=== PATIENT | male | born 1980 | race African-American/Black ===

== ENCOUNTER 2019-06-08 02:55 | Inpatient (IN) | payer OTHER ==
[~2019-06-08] VITALS: Ht 182.9 cm; Wt 126.0 kg
[2019-06-08 03:49] LABS: Hemoglobin 14.4 g/dL (13.5-17.5)
[2019-06-08 03:51] LABS: Hematocrit 45.5 % (41.0-53.0); Mean Corpuscular Hemoglobin 20.2 pg (28.0-32.0); Mean Corpuscular Hgb Conc. 31.7 g/dL (32.0-36.0); Mean Corpuscular Volume 63.9 fL (80.0-100.0); Platelet Count (auto) 319 10^3/uL (140-450); Red Blood Cells 7.12 10^6/uL (4.5-5.90); Red Cell Distribution Width 17.3 % (11.8-14.3); White Blood Cell 7.8 10^3/uL (4.4-10.8)
[2019-06-08 04:09] LABS: Basophils % (manual) 0 (0.0-2.0); Blast Cells 0; Eosinophils % (manual) 0 (0-7); Metamyelocytes % 0; Myelocytes % 0; Promyelocytes % 0; Reactive Lymphocytes 0
[2019-06-08 04:10] LABS: BUN/Creatinine Ratio 7.2; Calcium 9.3 mg/dL (8.5-10.1); Potassium 3.9 mmol/L (3.5-5.1)
[2019-06-08 04:13] LABS: Bilirubin, Total 0.6 mg/dL (0.2-1.0); Total Protein 8.6 g/dL (6.4-8.2)
[2019-06-08] MEDS ORDERED: SODIUM CHLORIDE 0.9% 1,000 ML IV ONE (04:28)
[2019-06-08] MEDS ORDERED: PROMETHAZINE HCL 25 MG/ML 1ML IV ONE (04:45)
[2019-06-08] MEDS ORDERED: TAMSULOSIN HYDROCHLORIDE 0.4 MG CAP PO ONE (04:45)
[2019-06-08] MEDS ORDERED: KETOROLAC TROMETH 30 MG/ML 1ML VIAL IV ONE (04:45)
[2019-06-08 04:51] LABS: Band Neutrophils % (manual) 2; Lymphocytes % (manual) 7 (10.0-50.0); Monocytes % (manual) 3 (0-12)
[2019-06-08] MEDS ORDERED: TEMAZEPAM 15 MG CAP PO PRN (05:15)
[2019-06-08] MEDS ORDERED: ACETAMINOPHEN 325 MG TAB PO PRN (05:15)
[2019-06-08] MEDS ORDERED: MORPHINE SULFATE 4 MG/ML SYR/VIAL IV PRN (05:15)
[2019-06-08] MEDS ORDERED: ONDANSETRON HCL 4 MG/2 ML VIAL IV PRN (05:15)
--- NOTE | 2019-06-08 06:30 | NUR ---
MS admit from ER ONOFRE MEZA admitted to tele/MS after SBAR received. Patient oriented to TE COKER, RN primary RN, unit, room, bed, and unit policies regarding patient care and visiting hours. No s/s of SOB or distress noted. Patient denies pain and nausea at this time. at bedside. Patient weighed by bedscale and encouraged to call if they need something. Bed locked and left in lowest positon. Call light left within reach. All questions and concerns addressed, patient verbalized understanding. Note:
[2019-06-08 06:49] VITALS: BP 134/89
--- NOTE | 2019-06-08 08:00 | NUR ---
Opening Shift Note Assumed care of patient, awake and alert. Denies needing anything at this time. No S/S of distress/SOB or pain. Instructed on POC and to call for assist PRN, will continue to monitor for changes Q1hr and PRN.
[2019-06-08 09:00] VITALS: BP 150/90
[2019-06-08] MEDS: FAMOTIDINE 20 MG TAB PO SCH ×2 (09:05→21:55)
[2019-06-08 13:00] VITALS: BP 148/72
[2019-06-08] MEDS ORDERED: MANNITOL FTV 25% 12.5 GM/50 ML 50 ML IV ONE (16:00)
[2019-06-08 17:00] VITALS: BP 154/87
[2019-06-08] MEDS: SODIUM CHLORIDE 0.9% 1,000 ML IV SCH (17:19)
[2019-06-08 17:22] LABS: Urine Bacteria NONE SEEN /hpf (None Seen); Urine Blood 3+ /uL (Negative); Urine Hyaline Cast FEW /lpf (0 - 2); Urine Mucus FEW (None Seen); Urine Specific Gravity 1.022 (1.001-1.035); Urine WBC 5 /hpf (0 - 3)
[2019-06-08] MEDS: TAMSULOSIN HYDROCHLORIDE 0.4 MG CAP PO SCH (17:45)
--- NOTE | 2019-06-08 19:20 | NUR ---
Opening Shift Note Report received from day shift RN. Assumed care of patient. Patient awake sitting in bed and alert x4. No S/S of distress/SOB noted. Patient complained of right flank pain 7/10. Instructed on POC and to call for assist PRN, call light left within reach. Will continue to monitor for changes Q1hr and PRN.
[2019-06-08] MEDS: HYDROcodone-ACET 5/325MG TAB PO PRN (21:55)
[2019-06-08 22:00] VITALS: BP 157/90
[2019-06-09] MEDS: SODIUM CHLORIDE 0.9% 1,000 ML IV SCH ×3 (01:00→17:53)
[2019-06-09] MEDS: HYDROcodone-ACET 5/325MG TAB PO PRN ×2 (04:36→09:14)
[2019-06-09 05:00] VITALS: BP 151/94
[2019-06-09 06:38] LABS: Basophils # (auto) 0 uL; Basophils % (auto) 0.3 % (0.0-2.0); Eosinophils # (auto) 0 uL; Eosinophils % (auto) 0.1 % (0.0-7.0); Monocytes # (auto) 1.1 uL; Nucleated Red Blood Cells % 0.2 %; Red Blood Cells 6.52 10^6/uL (4.5-5.90)
[2019-06-09 06:40] LABS: Hematocrit 41.3 % (41.0-53.0); Hemoglobin 13.3 g/dL (13.5-17.5); Lymphocytes # (auto) 2.1 uL; Lymphocytes % (auto) 20.1 % (10.0-50.0); Mean Corpuscular Hemoglobin 20.4 pg (28.0-32.0); Mean Corpuscular Hgb Conc. 32.3 g/dL (32.0-36.0); Mean Corpuscular Volume 63.3 fL (80.0-100.0); Monocytes % (auto) 10.5 % (0.0-12.0); Neutrophils # (auto) 7.2 uL; Platelet Count (auto) 278 10^3/uL (140-450); Red Cell Distribution Width 16.9 % (11.8-14.3); White Blood Cell 10.4 10^3/uL (4.4-10.8)
[2019-06-09 06:47] LABS: BUN/Creatinine Ratio 10.8; Calcium 8.3 mg/dL (8.5-10.1); Potassium 3.4 mmol/L (3.5-5.1)
[2019-06-09 08:00] VITALS: BP 142/88
--- NOTE | 2019-06-09 08:00 | NUR ---
Opening Shift Note Assumed care of patient, awake and alert. No S/S of distress/SOB, 6/10 right flank pain. Instructed on POC and to call for assist PRN, will continue to monitor for changes Q1hr and PRN.
[2019-06-09] MEDS: FAMOTIDINE 20 MG TAB PO SCH ×2 (09:13→20:23)
--- NOTE | 2019-06-09 10:20 | NUR ---
Urology consult Bonita GOLDEN at bedside, patient is advised. Orders received. Patient is for ESWL, right tomorrow to be performed by Dr. Meyer.
[2019-06-09] MEDS ORDERED: KETOROLAC TROMETH 30 MG/ML 1ML VIAL IV ONE (10:30)
[2019-06-09 12:00] VITALS: BP 137/87
[2019-06-09 16:55] VITALS: BP 134/86
[2019-06-09] MEDS: TAMSULOSIN HYDROCHLORIDE 0.4 MG CAP PO SCH (18:49)
--- NOTE | 2019-06-09 19:30 | NUR ---
Opening Shift Note: A&Ox4, resting in bed. Room air, pain level 0/10, and ambulates independently without assistive devices. Bed locked in lowest position, side rails up x2, and call light within reach. IV 20 g in right AC running NS at 125 ml/hr inserted on 06/08/19. Skin intact. POC discussed and questions answered. NPO at 0000 for right ESWL with Dr. Meyer on 06/10/19.
[2019-06-09 20:23] LABS: INR 0.94 (0.9-1.15); Partial Thromboplastin Time 31.2 sec (23.64-32.05)
[2019-06-09 21:30] VITALS: BP_SYST 149; BP_SYST 157; BP_DIAS 73; BP_DIAS 94
[2019-06-09] MEDS ORDERED: MANNITOL FTV 25% 12.5 GM/50 ML 50 ML IV ONE (22:00)
--- NOTE | 2019-06-09 22:57 | NUR ---
Page sent to [facility] in regards to renal calculi that the patient passed in urine. Patient is scheduled for right ESWL with Dr. Meyer on 06/10/19. Page sent for possible new orders.
--- NOTE | 2019-06-09 23:23 | NUR ---
Page return from Dr. Meyer: Cancel surgical procedure and advance to regular diet.
--- NOTE | 2019-06-09 23:28 | NUR ---
Held [place] in regards to patient passing renal calculi.
[2019-06-10] MEDS: SODIUM CHLORIDE 0.9% 1,000 ML IV SCH ×2 (00:46→09:00)
[2019-06-10 05:50] VITALS: BP 158/89
--- NOTE | 2019-06-10 08:00 | NUR ---
ASSESSMENT NOTE PATIENT IS ALERT ORIENTED X4, RESTING IN BED COMFORTABLY, NO DISTRESS NOTED, SELF REPOSITION, PAIN 0/10, AMBULATE NEEDED, CALL LIGHT WITHIN REACH.
[2019-06-10 08:44] VITALS: BP 158/94
[2019-06-10] MEDS: FAMOTIDINE 20 MG TAB PO SCH (09:13)
[2019-06-10 09:53] LABS: Potassium 3.7 mmol/L (3.5-5.1); Sodium 136 mmol/L (136-145)
[2019-06-10 09:54] LABS: Anion Gap 7 (5-15); BUN/Creatinine Ratio 9.7; Blood Urea Nitrogen 12 mg/dL (7-18); Calcium 8.3 mg/dL (8.5-10.1); Carbon Dioxide 22 mmol/L (21-32); Chloride 107 mmol/L (98-107); GFR African American 84 mL/min; GFR Non-African American 70 mL/min; Glucose 96 mg/dL (74-106)
--- NOTE | 2019-06-10 11:45 | NUR ---
FOLLOW UP PHYSICIAN PATIENT REPORTS THAT HE CHANGE INSURANCE, RJ PATIENT COORDINATED MADE AWARE, SAID THAT SHE WILL LOCATE MD FOR HIM
--- NOTE | 2019-06-10 12:30 | NUR ---
DANIEL HUI /PT COORDINATOR INFORM ME THAT THE OFFICE IS CLOSED FOR LUNCH
--- NOTE | 2019-06-10 13:04 | NUR ---
ALL DISCHARGE INSTRUCTION GIVEN TO PT, ENCOURAGE HIM TO MAKE PCP APPOINTMENT.
== END 2019-06-10 13:05 | disposition home or self-care (01) | DRG 694 ==
LOC: ER 03:02 → OVERFLOW 03:03 → EAST 06:03
PROVIDERS: ADMIT Nurse Practitioner; ATTEND Internal Medicine
DX: N13.2 Hydronephrosis with renal and ureteral calculous obstruction (principal); E66.01 Morbid (severe) obesity due to excess calories; N17.9 Acute kidney failure, unspecified; F12.90 Cannabis use, unspecified, uncomplicated; G47.00 Insomnia, unspecified; Z82.3 Family history of stroke; Z82.49 Family history of ischemic heart disease and other diseases of the circulatory system; Z83.0 Family history of human immunodeficiency virus [HIV] disease; Z83.3 Family history of diabetes mellitus; Z79.899 Other long term (current) drug therapy; Z68.37 Body mass index [BMI] 37.0-37.9, adult
CPT/HCPCS: 36415; 74176; 80048; 80053; 81001; 82150; 83690; 85007; 85025; 85027; 85610; 85730; G0378; J1885